=== PATIENT | male | born 1955 | race African-American/Black ===

== ENCOUNTER 2019-08-06 16:31 | Emergency (ER) | payer OTHER ==
[~2019-08-06] VITALS: Ht 182.9 cm; Wt 101.6 kg
[~2019-08-06 16:31] MED LIST: ACYCLOVIR400 MG ORAL; NKM; POLYTRIM OP SOL10 ML BOTH EYES
[2019-08-06 16:37] VITALS: BP 183/104
--- NOTE | 2019-08-06 17:12 | Emergency Room Report ---
History of Present Illness General Chief Complaint: Skin Rash/Abscess Source: Patient Present Illness HPI Patient presents with evaluation of left upper thigh mass and now sensation of palpable region left buttock area Patient denies any fevers denies any chest pain or shortness of breath Reports that he has been seen before for the left upper thigh mass by his primary physician and they are having Close follow-up for that recently however he has felt another palpable region Towards the medial aspect of the left buttock area Denies any tenderness with sitting denies any difficulty with bowel movements denies any dysuria or blood in the stool or urine Allergies: Coded Allergies: No Known Allergies (Unverified , 12/22/12) COVID-19 Screening Contact w/high risk pt: No Recent Travel to affected area: No Experienced COVID-19 symptoms?: No Patient History Past Medical History: see triage record Reviewed Nursing Documentation: PMH: Agreed; PSxH: Agreed Nursing Documentation-PM Past Medical History: No History, Except For Hx Hypertension: Yes Review of Systems All Other Systems: negative except mentioned in HPI Physical Exam Vital Signs Date Time Temp Pulse Resp B/P (MAP) Pulse Ox O2 Delivery O2 Flow Rate FiO2 08/06/19 16:37 98.1 79 18 183/104 (130) 98 Room Air Sp02 EP Interpretation: reviewed, normal General Appearance: well appearing, no apparent distress Head: normocephalic, atraumatic Eyes: bilateral eye PERRL, bilateral eye EOMI ENT: hearing grossly normal, normal pharynx, TMs + canals normal, uvula midline Neck: full range of motion, supple, no meningismus, no bony tend Respiratory: lungs clear, normal breath sounds, no rhonchi, no respiratory distress, no retraction, no accessory muscle use Cardiovascular #1: regular rate, rhythm Gastrointestinal: normal bowel sounds, non tender Rectal: other - Small folliculitis left medial rectal area, not involving the perirectal region no erythema, Genitourinary: no CVA tenderness Musculoskeletal: normal inspection Neurologic: alert Skin: other - Approximately 2 x 2 centimeter lipoma palpable left anterior thigh Lymphatic: no adenopathy Medical Decision Making Diagnostic Impression: Primary Impression: Folliculitis ER Course Given the history exam and findings there is a small palpable region almost pea- sized in nature Question early folliculitis versus small early abscess At this time patient is asymptomatic has a benign medical evaluation otherwise I did not feel emergency imaging and blood work was required at this point Patient will have initial conservative Trial on antibiotics and warm soaking and return in the next 7 days for repeat evaluation Last Vital Signs Date Time Temp Pulse Resp B/P (MAP) Pulse Ox O2 Delivery O2 Flow Rate FiO2 08/06/19 16:37 98.1 79 18 183/104 98 Room Air Status: improved Disposition: HOME, SELF-CARE Condition: Stable Scripts Trimethoprim/Sulfamethoxazole 160/800* (BACTRIM DS TABLET*) 1 Each Tablet 1 TAB ORAL Q12H, #20 TAB 0 Refills Prov: Yolanda Majano DO 08/06/19 Cephalexin* (KEFLEX*) 500 Mg Capsule 500 MG ORAL EVERY 6 HOURS for 10 Days, CAP Prov: Yolanda Majano DO 08/06/19 Referrals: [facility],REFERRING (PCP) Additional Instructions: Patient is provided with the discharge instructions notified to follow up with primary doctor in the next 2-3 days otherwise return to the er with any worsening symptoms. Please note that this report is being documented using [employer] technology. This can lead to erroneous entry secondary to incorrect interpretation by the dictating instrument. Yolanda Majano DO Aug 06, 2019 17:12
[2019-08-06] MEDS ORDERED: BACTRIM DS TAB1 EAC1 ORAL (17:14)
[2019-08-06] MEDS ORDERED: CEPHALEXIN500 MG ORAL (17:14)
[2019-08-06 17:22] VITALS: BP 157/92
== END 2019-08-06 17:22 | disposition home or self-care (01) ==
LOC: EMR 16:55
DX: L73.9 Follicular disorder, unspecified (principal); I10 Essential (primary) hypertension
CPT/HCPCS: 99282

== ENCOUNTER 2019-08-26 12:43 | Emergency (ER) | payer OTHER ==
[~2019-08-26] VITALS: Ht 183.5 cm; Wt 97.5 kg
[~2019-08-26 12:43] MED LIST changes: +BACTRIM DS TAB1 EAC1 ORAL; +CEPHALEXIN500 MG ORAL
--- NOTE | 2019-08-26 13:37 | NUR ---
ED Nurse Note: Pt walked into ED to f/u on folliculitis that he came for in July 2019. Was not able to make an appt with PMD so came to [facility] today. Small lump on L posterior thigh. No pain or itching. Pt states its getting better. He is alert and ox4, ambulatory.
[2019-08-26 13:39] VITALS: BP 162/100
--- NOTE | 2019-08-26 14:40 | Emergency Room Report ---
History of Present Illness General Chief Complaint: Skin Rash/Abscess Source: Patient, Medical Record Present Illness HPI 64 YO Male presents to the ED c/o non-painful with ST mass of the medial lower right buttock, no erythema warmth, progression in size or significant tenderness. Patient reports his PCP is aware and ordered an ultrasound however ordered ultrasound of the groin due to the fact that the primary care provider has not evaluated the patient in person due to current pandemic. Patient had ultrasound scheduled for today but it was not performed as it was in the wrong area. Patient decided come to the emergency department for second opinion. He states he has been doing warm water soaks and applying heating pads daily. He believes he has had some reduction in size. Allergies: Coded Allergies: No Known Allergies (Unverified , 12/22/12) COVID-19 Screening Contact w/high risk pt: No Recent Travel to affected area: No Experienced COVID-19 symptoms?: No COVID-19 Testing performed PROGRAMMER: No Patient History Past Medical History: see triage record Past Surgical History: none Pertinent Family History: none Reviewed Nursing Documentation: PMH: Agreed; PSxH: Agreed Nursing Documentation-PMH Hx Hypertension: Yes Review of Systems All Other Systems: negative except mentioned in HPI Physical Exam Vital Signs Date Time Temp Pulse Resp B/P (MAP) Pulse Ox O2 Delivery O2 Flow Rate FiO2 08/26/19 13:15 98.1 68 20 169/102 (124) 95 Room Air Sp02 EP Interpretation: reviewed, normal General Appearance: no apparent distress, alert, GCS 15, non-toxic Head: normocephalic, atraumatic Eyes: bilateral eye normal inspection, bilateral eye PERRL ENT: hearing grossly normal, normal voice Neck: full range of motion Respiratory: lungs clear, normal breath sounds, speaking full sentences Cardiovascular #1: regular rate, rhythm Rectal: deferred, other - palpable ST induration approx 1cm in diameter in the ST of the right lower buttock, no fluctuance, no warmth, no erythema, not involving the prei-rectal area. Genitourinary: normal inspection Musculoskeletal: normal range of motion, gait/station normal, non-tender Neurologic: alert, motor strength/tone normal, oriented x3, sensory intact, responsive, speech normal Psychiatric: judgement/insight normal Skin: normal color, other - palpable ST induration approx 1cm in diameter in the ST of the right lower buttock, no fluctuance, no warmth, no erythema, not involving the prei-rectal area. Medical Decision Making PA Attestation Dr. Joe is my supervising Physician whom patient management has been discussed with. Diagnostic Impression: Primary Impression: Abnormality of soft tissue on examination ER Course 64 YO Male presents to the ED c/o non-painful with ST mass of the medial lower right buttock, no erythema warmth, progression in size or significant tenderness. Patient reports his PCP is aware and ordered an ultrasound however ordered ultrasound of the groin due to the fact that the primary care provider has not evaluated the patient in person due to current pandemic. Patient had ultrasound scheduled for today but it was not performed as it was in the wrong area. Patient decided come to the emergency department for second opinion. He states he has been doing warm water soaks and applying heating pads daily. He believes he has had some reduction in size. PT. denies situational symptoms such as significant unintentional weight loss, night sweats or decreased appetite.. Ddx considered but are not limited to cellulitis, foliculitis, ST tumor, Cancer , scar tissue, abscess, cystic acne, necrotizing fasciitis, insect bite just to name a few. Vital signs: are WNL, pt. is afebrile H&PE are most consistent with Benign ST mass. No evidence of acute infection/ abscess. Patient is nontoxic in appearance and in no acute distress. ORDERS: none required at this time, the diagnosis is clinical ED INTERVENTIONS: -non required at this time. No palpable fluctuance. d/w pt best for outpatient US to fully identify mass in order to choose correct therapy or management. -I do not identify an emergent condition at this time. With current presentation , pt. is stable for close outpatient follow up and conservative treatment. D/ w pt. to return promptly to ED with worsening or new symptoms.- Pt. verbalizes' understanding and agreement with proposed treatment plan. DISCHARGE: At this time pt. is stable for d/c to home. Will provide printed patient care instructions, and any necessary prescriptions. Care plan and follow up instructions have been discussed with the patient prior to discharge. Last Vital Signs Date Time Temp Pulse Resp B/P (MAP) Pulse Ox O2 Delivery O2 Flow Rate FiO2 08/26/19 13:39 98.1 65 18 162/100 98 Room Air Status: improved Disposition: HOME, SELF-CARE Condition: Stable Referrals: [facility],REFERRING (PCP) Patient Instructions: Medical Screening Exam Additional Instructions: Take any previously prescribed medications as directed. Follow up with a Primary Care Provider in 3-5 days, even if your symptoms have resolved. --Recommend ultrasound identification of Right lower buttock palpable mass as an outpatient to determine proper management. Return sooner to ED if new symptoms occur, or current symptoms become worse. - Please note that this Emergency Department Report was dictated using [employer] analyst technology software, occasionally this can lead to erroneous entry secondary to interpretation by the dictation equipment. Milly Kingston August 26, 2019 14:40
[2019-08-26 14:52] VITALS: BP 136/97
--- NOTE | 2019-08-26 14:52 | NUR ---
ER DISCHARGE NOTE: Patient is cleared to be discharged per ERMD, pt is aox4, on room air, with stable vital signs. pt was given dc instructions, pt was able to verbalize understanding, pt id band removed. pt is able to ambulate with steady gait. pt took all belongings. Pt educated about soft tissue US exam with PMD.
== END 2019-08-26 14:54 | disposition home or self-care (01) ==
LOC: EMR 13:23
DX: R22.9 Localized swelling, mass and lump, unspecified (principal); I10 Essential (primary) hypertension
CPT/HCPCS: 99282